=== PATIENT | female | born 1965 | race Caucasian/White ===

== ENCOUNTER 2018-01-11 10:47 | Emergency (ER) | payer BC ==
[~2018-01-11] VITALS: Ht 170.1 cm; Wt 147.4 kg
[2018-01-11] MEDS ORDERED: MEDROL DOSEPAK4 MG PO (14:58)
== END 2018-01-11 14:56 | disposition home or self-care (01) ==
LOC: ED 10:47
DX: M54.9 Dorsalgia, unspecified (principal); G89.29 Other chronic pain; Z88.8 Allergy status to other drugs, medicaments and biological substances

== ENCOUNTER 2018-03-09 23:54 | Emergency (ER) | payer BC ==
[~2018-03-09] VITALS: Ht 165.1 cm
[~2018-03-09 23:54] MED LIST: MEDROL DOSEPAK4 MG PO
[2018-03-10 00:29] LABS: BASO % 0.2 % (0.0-1.0); EOS # 0.3 10*3/uL (0.0-0.4); EOS % 2.7 % (1.0-4.0); HEMATOCRIT 30.3 % (37.0-47.0); HEMOGLOBIN 9.4 g/dl (12.0-16.0); LYMPH # 1.4 10*3/uL (1.3-4.4); LYMPH % 14.3 % (27.0-41.0); MEAN CELL VOLUME 103.4 fl (81.0-99.0); MEAN CORPUSCULAR HGB 32.1 pg (27.0-31.0); MEAN PLATELET VOLUME 8.9 fl (9.6-12.3); MONO # 0.9 10*3/uL (0.1-1.0); MONO % 8.7 % (3.0-9.0); NEUT # 7.2 10*3/uL (2.3-7.9); NEUT % 72.9 % (47.0-73.0); PLATELET COUNT AUTOMATED 352 10*3/uL (130-400); RED BLOOD COUNT 2.93 10*6/uL (4.10-5.10); RED CELL DISTRI WIDTH 14.8 % (0-14.5); WHITE BLOOD COUNT 9.9 10*3/uL (4.8-10.8)
[2018-03-10 00:41] LABS: ACT PARTIAL THROMBO TIME 33.9 SECONDS (20.8-31.5); INTERNATIONAL NORM RATIO 1.1 (2.0-3.5)
[2018-03-10 00:45] LABS: ALBUMIN 2.2 gm/dl (3.1-4.5); ALKALINE PHOSPHATASE 231 U/L (45-117); BUN 10 mg/dl (7-24); CHLORIDE 96 mmol/L (98-107); CREATININE 0.83 mg/dL (0.55-1.02); POTASSIUM 3.3 mmol/L (3.5-5.1); SGOT/AST 36 IU/L (3-35); SGPT/ALT 38 U/L (12-78); SODIUM 136 mmol/L (136-145); TOTAL PROTEIN 7.4 gm/dL (6.4-8.2)
[2018-03-10 00:53] LABS: TROPONIN I < 0.015 ng/ml (<0.045)
== END 2018-03-10 02:10 | disposition other institution (70) ==
LOC: ED 23:54
PROVIDERS: Physician Assistant
DX: J98.01 Acute bronchospasm (principal); J44.9 Chronic obstructive pulmonary disease, unspecified; Z88.1 Allergy status to other antibiotic agents; Z88.8 Allergy status to other drugs, medicaments and biological substances; Z99.81 Dependence on supplemental oxygen; Z87.01 Personal history of pneumonia (recurrent)

== ENCOUNTER 2018-03-12 10:06 | Inpatient (IN) | payer BC ==
[2018-03-12] VITALS (9 sets, daily range): BP systolic 113–154; BP diastolic 66–82
[~2018-03-12] VITALS: Ht 175.3 cm; Wt 152.0 kg
--- NOTE | ~2018-03-12 | CON ---
[place], [place] REPORT OF CONSULTATION NAME: BREEZY RIVERA UNIT #: [id number] ROOM: 427 DOCTOR: MAC CONTI MDTOMMY BIRTHDATE: [birth year] DOS: 03/13/2018 REASON FOR CONSULTATION: For assessment of possibility of procedure completion MRI with the sedation and other ongoing respiratory symptoms of coughing, chest congestion. HISTORY OF PRESENT ILLNESS: A 52-year-old white female completely unknown to me, admitted to the hospital under hospitalist services, 03/12/2018. The patient admitted to the hospital. The patient has been noted with symptoms of positive blood culture for the patient, which were taken recent 2 days. The patient has been hospitalized at [facility], 12/2017. She has been noted multiple comorbid conditions, which has been known in the past. She has been also reported with a previous history of pneumonia, which were recently treated also diagnosis of COPD as well as the hypoxic respiratory failure. The patient stated she has not been assessed for sleep apnea disorder, but it has been suspected. The patient was also noted with nodule which was described in the right lower lobe monitored by graphics edit technician in [place], [place]. The patient stated that she has developed increased coughing, chest congestion, not expectorating much sputum. The patient denies any symptoms of hemoptysis. The patient was treated at [facility] after previous discharge. She was also complaining of severe pain, which she described in the spine area, multiple parts of the body, stating that today she has been suggested by the MRI for this patient, but could not complete that because of inability to lie flat. She does have symptoms of shortness breath, which has been present for past several months with a gradual increase in occurring sometime at rest. Denies symptoms of wheezing. REVIEW OF SYSTEMS: CONSTITUTIONAL SYMPTOMS: Fatigue and tiredness reported for this patient, not sure about symptoms of fever or chills. EYES: Denies any burning, redness, or tenderness. EARS, NOSE, THROAT SYMPTOMS: Denies sore throat, hoarseness, otalgia, postnasal drainage or epistaxis. CARDIOVASCULAR: No angina pain, edema or pain of the lower extremities. Previous edema of the lower extremities has been reported. GASTROINTESTINAL: Severe morbid obesity. Denies symptoms of nausea, vomiting, diarrhea, abdominal pain, hematemesis, melena, or hematochezia. GENITOURINARY: Denies any symptoms of suprapubic pain, hematuria or trouble with urination. MUSCULOSKELETAL SYMPTOMS: Severe pain, which is described in spine, multiple parts of the joint for this patient with various different arthropathies reported by the patient. SKIN: Denies abnormal lesions or rashes. CENTRAL NERVOUS SYSTEM: General weakness, fatigue for this patient was noted and is not able to walk recently because of just the weakness at this time, but stated that she has been walking previously by herself without any help. PAST MEDICAL HISTORY: 1. Has been reported for multiple diagnoses stated by the patient and confirmed by the who has been present and assisted with the patient history as [place], [place] REPORT OF CONSULTATION NAME: BREEZY RIVERA UNIT #: [id number] ROOM: [facility] DOCTOR: TOMMY INFANTE MD BIRTHDATE: [birth year] bronchial asthma. 2. COPD. 3. Degenerative arthritis. 4. Intervertebral disk disease. 5. Hilda thyroiditis. 6. Severe morbid obesity. 7. Polycystic ovarian syndrome. 8. Scoliosis. 9. Spondylolisthesis. 10. Spinal stenosis. 11. Suspected obstructive sleep apnea disorder. 12. Chronic hypoxic respiratory failure, intermittent use of oxygen. PAST SURGICAL HISTORY: The patient was noted none previous major surgeries. SOCIAL HISTORY: She is and lives at home, does not have any children. Denies history of alcohol use or any illicit drugs. MEDICATIONS: The patient's medication which were listed at the time of admission, use of theophylline, potassium chloride, OxyContin, omeprazole, Nystatin, metformin, levothyroxine, DuoNeb, ibuprofen, vitamin D, gabapentin, Diamox, Soma, BuSpar, Bumex, Symbicort, atorvastatin and acetaminophen. DRUG ALLERGY HISTORY: Reported allergies to: 1. Breo-Ellipta. 2. Cefaclor. 3. Azithromycin. PHYSICAL EXAMINATION: GENERAL: This is a 52-year-old morbidly obese female patient who has been currently lying in the bed. Height of 5 feet 9 inches. Weight has been rather reported at 335 pounds. VITAL SIGNS: For the patient recorded as temperature 99.7 degrees Fahrenheit, normal temperature, respiratory rate 20-18, heart rate 111-104, blood pressure 113/71-140/81. Pulse oxygen saturation on 4 liters nasal cannula 94% saturation. HEENT: Examination shows decreased posterior pharyngeal space. Head was atraumatic. Eyes nonicterus. NECK: Supple. CARDIOVASCULAR: S1, S2 is audible. Limited examination. LUNGS: The patient's auscultation anterolaterally without any wheezing or crackles. ABDOMEN: Noted soft, severely obese and morbid. Bowel sounds present without any tenderness. EXTREMITIES: The patient with chronic obesity without edema, clubbing or cyanosis. CENTRAL NERVOUS SYSTEM: Limited examination and does not show any focal neurologic deficit. MUSCULOSKELETAL: There were no visible areas of joint swelling was noted for the patient or the major joints on visual inspection. There were no deformities [place], [place] REPORT OF CONSULTATION NAME: BREEZY RIVERA UNIT #: [id number] ROOM: [facility] DOCTOR: TOMMY INFANTE MD BIRTHDATE: [birth year] of musculoskeletal system. LABORATORY DATA: PT/PTT on 03/10/2018 was negative. CBC of the patient done in the Emergency Room noted as hemoglobin 9.4, hematocrit 30.3, WBC count normal, platelet count normal. CMP during ER assessment of the patient, normal BUN and creatinine and potassium 3.3. CBC that was done yesterday on admission, hemoglobin 9.5, hematocrit 30.7, WBC count normal, platelet count normal. Lactic acid 1.4. CMP of the patient that was done yesterday, normal BUN and creatinine. Potassium 3.1. Albumin of 2.3. PT/PTT were noted normal. The ESR was noted elevated at 134. Troponin for the patient, which was done yesterday and this morning, 3 sets normal. Blood cultures taken 03/12/2018 for the patient, gram-positive cocci in clusters was noted. Blood culture for the patient, which was taken on 03/10/2018 done previously during ER visit noted with the Staph aureus with the finding consistent with MRSA. The chest x-ray finding for the patient, which has been reported by me in this consultation need to be completely deleted. The chest x-ray was done, 1 view, the patient was noted with the limited assessment because of very large body habitus. The patient apparently appeared to be possibility of retrocardiac infiltration cannot be completely excluded because lack of lateral view could not confirm if there is any infiltration or atelectasis of the left lower lobe. IMPRESSION: 1. The patient who has been admitted to the hospital noted with overwhelming bacteremia with pain in the spine for this patient was also noted with increased respiratory symptoms, coughing without any sputum expectoration, shortness of breath. Pulse with overwhelming bacteremia with MRSA. The source of bacteremia of the patient was unknown, possible and questionable pneumonia for this patient or any seeding of the spine for the patient resulting in bacteremia cannot be completely excluded. 2. Past history of severe osteoarthritis of the patient and arthritis of spine and other issues. 3. Strong suspicion of obstructive sleep apnea disorder. Current body habitus. The patient required further assessment. 4. Chronic hypoxic respiratory failure for the patient. 5. Chronic hypercarbia for the patient's metabolic alkalosis, on Diamox use. 6. Comorbid condition of the hypothyroidism, severe morbid obesity, bronchial asthma for the patient and current cough. PLAN OF MANAGEMENT: It would be not possible for this patient to obtain the MRI for the patient with outpatient medical status and inability to lay down flat and current ongoing respiratory symptom of the patient posing a high risk of developing acute respiratory failure if the patient with MRI to be done on monitor of his sedation is very likely. The patient needs to be transferred to [facility] as she has been known to all of the physicians who has been treating the patient on several conditions for further assessment and the MRI could be attempted there, potential intubation to be done for the patient for the MRI, but this is to be decided by opinion from a primary graphics edit technician. In the meantime, continue bacteremia treatment with vancomycin and other [place], [place] REPORT OF CONSULTATION NAME: BREEZY RIVERA UNIT #: [id number] ROOM: 427 DOCTOR[facility] [birth year] recommendation, which has given by the infectious disease specialist, follow those recommendations. All other supportive therapy, plan of management and care. Prognosis of the patient remains guarded. The current ongoing medical problem of the patient and the other risk and other limitations has already been addressed with the patient's who understand that very well about the limitation of her problem as well as discussion was done with Dr. Erick Malone for the patient for transfer to [facility]. TOMMY WATTS MD CM:CONSTR:REPORT OF CONSULTATION 1605 03/14/18 0500 interface
--- NOTE | ~2018-03-12 | PR ---
[place], [place] PROGRESS NOTE NAME: BREEZY RIVERA UNIT #: [id number] ROOM: 427 DOCTOR: MAC CONTI MD,TOMMY BIRTHDATE: [birth year] DOS: 03/14/2018 SUBJECTIVE: She has been noted at this time comfortable, lying in the bed, still complains of pain in the back and other areas, general weakness, fatigue, coughing has been noted with some sputum expectoration this morning. Shortness of breath noted stable on oxygen supplementation. We will continue to provide the patient with the nasal cannula. OBJECTIVE: VITAL SIGNS: Normal temperature, respiratory rate 16, heart rate 79, blood pressure 133/60-120/80. The pulse oxygen saturation on 4 liters nasal cannula 97% saturation. HEENT: No new change. NECK: Supple. CARDIOVASCULAR: S1, S2 is audible. LUNGS: Noted moderate decreased breath sounds with scattered crackles in the right and the left lateral auscultation. ABDOMEN: Soft with morbid obesity. EXTREMITIES: Noted no changes from previous chronic obesity. LABORATORY DATA: The cultures of the blood, which were done yesterday was 1/2 culture still noted Gram-positive cocci in clusters. IMPRESSION: Overwhelming bacteremia was noted with possible endocarditis would be considered. Source of infection, not clearly known may be related to pneumonia as well is one of the consideration with the current chest x-ray. Limited assessment because of the current large body habitus and other reasons. PLAN OF THERAPY: No changes in the plan for the patient at this time will be necessary. The patient is awaiting for transfer to [facility] for further assessment and care of her complex issues. TOMMY WATTS MD CM:PNTRANS 1342 [id number] TOMMY CONTI MD 03/15/18 0144 interface
--- NOTE | ~2018-03-12 | CON ---
[place], [place] REPORT OF CONSULTATION NAME: BREEZY RIVERA UNIT #: [id number] ROOM: 427 DOCTOR: JEFFERSON QUIÑONEZ MD BIRTHDATE: [birth year] DOS: 03/12/2018 REASON FOR CONSULTATION: MRSA bacteremia. HISTORY OF PRESENT ILLNESS: This is a 52-year-old female who was brought from [facility] to [facility] in response to positive blood cultures obtained on 03/10/2018 that shows MRSA with vancomycin DARLIN 2. Currently, the patient has been started on vancomycin, meropenem and levofloxacin to cover the lungs for suspected pneumonia. According to the patient, her things got worse weekly from first week of December, which she was presenting for shortness of breath and was considered to be an asthma exacerbation. She was treated with steroids and discharged home and started having back pain, which was uncontrollable for her. She went to [facility] from where she was given Dilaudid for pain relief and at that time, CT scan of the spine without contrast shows chronic spinal issues including lumbarization of the sacrum, degenerative joint disease, bulging disks, spondylolisthesis. She was apparently not following up with the physical therapy at the [facility] and she was discharged. Apparently, claims that they left AMA because they were not happy and she again stayed for 2 weeks at home, but her symptoms continued to get worse, so she got readmitted at [facility] and then got transferred to [facility] and while staying at the [facility], she did notice slight improvement in her back pain. On asking her retrospectively, she denies any flu-like symptoms, was having shortness of breath, slightly increased from her baseline cough which is occasionally productive. No chills. She says "I feel overall sick," feels nauseous. No episodes of vomiting or diarrhea. No abdominal pain. On arrival to the ER, her vitals were noted to be stable. She is slightly tachycardic. Her labs revealed no leukocytosis. ESR is very high at 134. No lactic acidosis. Her chest x-ray has been done today, which shows cardiomegaly, mild vascular congestion, lower right hilar infiltrate, left base atelectasis and effusion. PAST MEDICAL HISTORY: Significant for asthma, chronic back pain, COPD, degenerative joint disease of the spine, GERD, Hilda's thyroiditis, hyperlipidemia, morbid obesity, polycystic ovarian syndrome. PAST SURGICAL HISTORY: None. SOCIAL HISTORY: Occasional alcoholic. No illicit drug use. No tobacco abuse. FAMILY HISTORY: Father has history of diabetes. Mother has history of hypertension. ALLERGIES: AZITHROMYCIN, unspecified; CEFACLOR, FLUTICASONE. HOME MEDICATIONS: Include Tylenol, atorvastatin, Symbicort, Bumex, bumetanide, bupropion, Soma, Diamox, diclofenac, gabapentin, Mucinex, ipratropium, levothyroxine, metformin, theophylline and ____. REVIEW OF SYSTEMS: A 12-point review of systems has been pertinent negatives are positive, has been included in HPI, rest are noncontributory. [place], [place] REPORT OF CONSULTATION NAME: BREEZY RIVERA UNIT #: [id number] ROOM: [facility] DO[facility]: [birth year] PHYSICAL EXAMINATION: VITAL SIGNS: Noted and mentioned in HPI. GENERAL: The patient is alert, oriented x 3 in mild distress because of her back pain. HEENT: Atraumatic, normocephalic. PERRLA, EOMI. RESPIRATORY: Air entry bilaterally equal. Coarse crackles present in bilateral lungs, all lung dickerson. No wheezing, currently hooked up to 2 liters of nasal cannula, is being increased to 4 liters now. CARDIOVASCULAR: S1, S2 normal. No murmur, rubs or gallop. ABDOMEN: Soft, nontender, nondistended, morbidly obese. EXTREMITIES: Minimal movement of the lower legs, restricted by pain. Sensation is intact. LABORATORY DATA AND IMAGING: Reviewed, mentioned in HPI. IMPRESSION: 1. Methicillin-resistant Staphylococcus aureus bacteremia, likely source from recent IV lines placed and multiple hospitalizations, some of them ____ and was causing her intense pain. Another likely source is pneumonia. 2. Back pain secondary to lumbar stenosis, suspicion for epidural abscess with methicillin-resistant Staphylococcus aureus bacteremia or seeding in the spine. The patient is having some neurological deficit. No loss of bladder or bowel control at this time. 3. History of lung mass. 4. Concern for methicillin-resistant Staphylococcus aureus pneumonia. PLAN: 1. At this time, continue with vancomycin, questionable PENICILLIN allergy, can continue meropenem for now. Discontinue levofloxacin. 2. Get respiratory cultures. 3. Get procalcitonin. 4. Get CT chest with contrast and consult Pulmonary for management of lung mass as well as chronic obstructive pulmonary disease. 5. The patient has instability of her back and weakness in the legs, need CT spine with contrast. I prefer to have an MRI with gadolinium, but this would need sedation for the patient to lie flat and her oxygen saturation might drop during this time. I did discuss with the hospitalist fiction and nonfiction author to discuss with Pulmonary. If it is something not possible and causing excessive respiratory distress that needs urgent CT scan of spine with contrast and may eventually need neurosurgical evaluation. 6. All other blood cultures from today. 7. Echocardiogram has been ordered. Thank you for your consult. Please call for any questions. [place], [place] REPORT OF CONSULTATION NAME: BREEZY RIVERA UNIT #: [id number] ROOM: 427 DOCTOR: KHANG JONES,[facility] BIRTHDATE: [birth year] Marija Quiñonez MD CM:CONSTR:REPORT OF CONSULTATION [id number] 03/13/18 0046 interface
--- NOTE | ~2018-03-12 | EKG ---
[place], [place] ELECTROCARDIOGRAM REPORT NAME: BREEZY RIVERA UNIT #: [id number] ROOM: 427 DOCTOR: MAC CONTI MD,TOMMY BIRTHDATE: [birth year] DOS: 03/12/2018 TIME: 10:34 a.m. Echocardiogram showed normal sinus rhythm. Baseline heart rate 94 beats per minute. Low voltage electrocardiogram most likely due to patient's body habitus. Nonspecific ST-T changes noted. TOMMY WATTS MD CM:EKGRPT:ELECTROCARDIOGRAM REPORT 1218 1224 TOMMY CONTI MD
[2018-03-12 10:44] LABS: BASO % 0.2 % (0.0-1.0); EOS # 0.2 10*3/uL (0.0-0.4); EOS % 1.5 % (1.0-4.0); HEMATOCRIT 30.7 % (37.0-47.0); HEMOGLOBIN 9.5 g/dl (12.0-16.0); LYMPH # 1.8 10*3/uL (1.3-4.4); LYMPH % 17.1 % (27.0-41.0); MEAN CELL VOLUME 102.3 fl (81.0-99.0); MEAN CORPUSCULAR HGB 31.7 pg (27.0-31.0); MEAN CORPUSCULAR HGB CONC 30.9 g/dl (33.0-37.0); MEAN PLATELET VOLUME 8.9 fl (9.6-12.3); MONO # 0.9 10*3/uL (0.1-1.0); MONO % 8.8 % (3.0-9.0); NEUT # 7.6 10*3/uL (2.3-7.9); NEUT % 71.1 % (47.0-73.0); NUCLEATED RED BLOOD CELL 0.2 % (0.0-0.0); PLATELET COUNT AUTOMATED 355 10*3/uL (130-400); RED CELL DISTRI WIDTH 14.8 % (0-14.5); WHITE BLOOD COUNT 10.7 10*3/uL (4.8-10.8)
[2018-03-12 10:52] LABS: ACT PARTIAL THROMBO TIME 31.8 SECONDS (20.8-31.5); INTERNATIONAL NORM RATIO 1.1 (2.0-3.5)
[2018-03-12 11:00] LABS: ALBUMIN 2.3 gm/dl (3.1-4.5); ALKALINE PHOSPHATASE 191 U/L (45-117); BUN 6 mg/dl (7-24); CHLORIDE 95 mmol/L (98-107); CREATININE 0.72 mg/dL (0.55-1.02); LIPASE 223 U/L (73-393); POTASSIUM 3.1 mmol/L (3.5-5.1); SGOT/AST 26 IU/L (3-35); SGPT/ALT 30 U/L (12-78); SODIUM 136 mmol/L (136-145); TOTAL PROTEIN 7.3 gm/dL (6.4-8.2)
[2018-03-12 11:03] LABS: TROPONIN I < 0.015 ng/ml (<0.045)
[2018-03-12] MEDS ORDERED: POTASSIUM CHLO10 ME4 PO (13:16)
[2018-03-12] MEDS ORDERED: Ipratropium Brom3 ML INH (13:17)
[2018-03-12] MEDS ORDERED: MUCINEX D ER T1 EACH PO (13:20)
[2018-03-12] MEDS ORDERED: BUMETANIDE1 MG PO (13:21)
[2018-03-12] MEDS ORDERED: NYST SUSP PO (13:23)
[2018-03-12] MEDS ORDERED: METFORMIN HCL500 MG PO (13:25)
[2018-03-12] MEDS ORDERED: NEURONTIN300 MG PO (13:26)
[2018-03-12] MEDS ORDERED: ERGOCAL2500 UNIT PO (13:27)
[2018-03-12] MEDS ORDERED: OMEPRAZOLE20 M2 PO (13:28)
[2018-03-12] MEDS ORDERED: LEVOXYL112 MCG PO (13:28)
[2018-03-12] MEDS ORDERED: LIPITOR10 MG PO (13:28)
[2018-03-12] MEDS ORDERED: GOOD NEIGHBOR500 M2 PO (13:31)
[2018-03-12] MEDS ORDERED: SYMB160 INH (13:31)
[2018-03-12] MEDS ORDERED: DIAMOX SEQUELS PO (13:33)
[2018-03-12] MEDS ORDERED: THEOPHYLLINE E100 M1 PO (13:34)
[2018-03-12] MEDS ORDERED: BUPROPION ER100 MG PO (13:37)
[2018-03-12] MEDS ORDERED: VOLTAREN100 GM TD (13:38)
[2018-03-12] MEDS ORDERED: Motrin,Rufen800 MG PO (13:39)
[2018-03-12] MEDS ORDERED: OXYCONTIN10 M1 PO (13:39)
[2018-03-12] MEDS ORDERED: SOMA350 MG PO (13:40)
[2018-03-12] MEDS ORDERED: OXYCODONE HCL5 M1 PO (13:41)
[2018-03-12 18:56] LABS: BILIRUBIN NEGATIVE (NEGATIVE); BLOOD NEGATIVE (NEGATIVE); CLARITY CLEAR (CLEAR); COLOR YELLOW (YELLOW); GLUCOSE NEGATIVE (NEGATIVE); KETONE NEGATIVE (NEGATIVE); LEUKO ESTERASE NEGATIVE (NEGATIVE); NITRITE NEGATIVE (NEGATIVE); SPECIFIC GRAVITY <= 1.005 (1.005-1.030); UROBILINOGEN 0.2 E.U./dl (0.2-1.0)
[2018-03-12 19:08] LABS: BACTERIA 1+; EPITHELIAL CELLS 50-55; RBC 0-2 rbc/hpf (0-2)
[2018-03-13 01:13] VITALS: BP 132/71
[2018-03-13 07:45] LABS: BASO % 0.2 % (0.0-1.0); EOS # 0.1 10*3/uL (0.0-0.4); HEMATOCRIT 28.7 % (37.0-47.0); HEMOGLOBIN 8.9 g/dl (12.0-16.0); LYMPH # 1.6 10*3/uL (1.3-4.4); LYMPH % 17.7 % (27.0-41.0); MEAN CELL VOLUME 102.9 fl (81.0-99.0); MEAN CORPUSCULAR HGB 31.9 pg (27.0-31.0); MEAN PLATELET VOLUME 9.4 fl (9.6-12.3); MONO # 0.9 10*3/uL (0.1-1.0); MONO % 9.9 % (3.0-9.0); NEUT # 6.2 10*3/uL (2.3-7.9); NEUT % 69.1 % (47.0-73.0); PLATELET COUNT AUTOMATED 341 10*3/uL (130-400); RED BLOOD COUNT 2.79 10*6/uL (4.10-5.10); RED CELL DISTRI WIDTH 14.7 % (0-14.5)
[2018-03-13 07:47] LABS: BUN 4 mg/dl (7-24); CHLORIDE 99 mmol/L (98-107); CHOLESTEROL 153 mg/dL (<200); HDL CHOLESTEROL 48 mg/dl (40-60); PHOSPHOROUS 4.2 mg/dL (2.5-4.9); POTASSIUM 3.5 mmol/L (3.5-5.1); SODIUM 139 mmol/L (136-145)
[2018-03-13 08:00] VITALS: BP 143/68
[2018-03-13 08:22] LABS: CREATININE 0.57 mg/dL (0.55-1.02)
[2018-03-13 08:30] LABS: VITAMIN D, 25-HYDROXY 73.7 ng/mL (30-100)
[2018-03-13 08:37] LABS: LDL CHOLESTEROL 84 mg/dL (9-159); TRIGLYCERIDES 104 mg/dl (<150); VLDL CHOLESTEROL 21 mg/dL (6-40)
[2018-03-13 12:00] VITALS: BP 145/76
[2018-03-13 16:00] VITALS: BP 126/54
[2018-03-13 20:00] VITALS: BP 136/80
[2018-03-14] VITALS: BP 135/75
[2018-03-14 08:00] VITALS: BP 120/80
[2018-03-14 12:00] VITALS: BP 133/62
[2018-03-14] MEDS ORDERED: LEVOFLOXAC750 MG/150 IV (14:05)
[2018-03-14] MEDS ORDERED: VANCOMYCIN2 GM/500 M IV (14:05)
[2018-03-14] MEDS ORDERED: VITAMIN D-32000 UNIT PO (14:05)
[2018-03-14] MEDS ORDERED: MERREM IV1 GM IV (14:05)
== END 2018-03-14 15:46 | disposition short-term general hospital (02) | DRG 871 ==
LOC: ED 10:06 → 4E 11:56 → EDHOLD 11:56 → ICCU 12:15 → 4E 19:33
PROVIDERS: Emergency Medicine; Student in an Organized Health Care Education/Training Program
DX: A41.9 Sepsis, unspecified organism (principal); E43 Unspecified severe protein-calorie malnutrition; E87.3 Alkalosis; J96.11 Chronic respiratory failure with hypoxia; J18.9 Pneumonia, unspecified organism; E66.01 Morbid (severe) obesity due to excess calories; J45.901 Unspecified asthma with (acute) exacerbation; Z68.41 Body mass index [BMI] 40.0-44.9, adult; J96.12 Chronic respiratory failure with hypercapnia; E87.6 Hypokalemia; D53.9 Nutritional anemia, unspecified; M54.9 Dorsalgia, unspecified; R79.82 Elevated C-reactive protein (CRP); E06.3 Autoimmune thyroiditis; M48.061 Spinal stenosis, lumbar region without neurogenic claudication; E28.2 Polycystic ovarian syndrome; E03.9 Hypothyroidism, unspecified; K21.9 Gastro-esophageal reflux disease without esophagitis; R70.0 Elevated erythrocyte sedimentation rate; E78.5 Hyperlipidemia, unspecified; Z79.899 Other long term (current) drug therapy; Z88.1 Allergy status to other antibiotic agents; Z88.8 Allergy status to other drugs, medicaments and biological substances; Z82.49 Family history of ischemic heart disease and other diseases of the circulatory system; Z83.3 Family history of diabetes mellitus

== ENCOUNTER → 2021-01-23 | Outpatient (CLI) | payer BC, MEDICARE ==
[~2021-01-23] MED LIST changes: +BUMETANIDE1 MG PO; +BUPROPION ER100 MG PO; +DIAMOX SEQUELS PO; +ERGOCAL2500 UNIT PO; +GOOD NEIGHBOR500 M2 PO; +Ipratropium Brom3 ML INH; +LEVOFLOXAC750 MG/150 IV; +LEVOXYL112 MCG PO; +LIPITOR10 MG PO; +MERREM IV1 GM IV; +METFORMIN HCL500 MG PO; +MUCINEX D ER T1 EACH PO; +Motrin,Rufen800 MG PO; +NEURONTIN300 MG PO; +NYST SUSP PO; +OMEPRAZOLE20 M2 PO; +OXYCODONE HCL5 M1 PO; +OXYCONTIN10 M1 PO; +POTASSIUM CHLO10 ME4 PO; +SOMA350 MG PO; +SYMB160 INH; +THEOPHYLLINE E100 M1 PO; +VANCOMYCIN2 GM/500 M IV; +VITAMIN D-32000 UNIT PO; +VOLTAREN100 GM TD
== END | disposition home or self-care (01) ==
LOC: RAD 14:14
PROVIDERS: ATTEND Internal Medicine Critical Care Medicine
DX: R05 Cough (principal)

== ENCOUNTER → 2021-02-08 | Outpatient (CLI) | payer BC, MEDICARE ==
[2021-02-08 12:34] LABS: CREATININE 1.36 mg/dL (0.55-1.02)
== END | disposition home or self-care (01) ==
LOC: LAB 12:06 → CT 13:00
PROVIDERS: ATTEND Internal Medicine Critical Care Medicine
DX: Z01.812 Encounter for preprocedural laboratory examination (principal); R91.8 Other nonspecific abnormal finding of lung field; R91.1 Solitary pulmonary nodule; K76.0 Fatty (change of) liver, not elsewhere classified; M51.34 Other intervertebral disc degeneration, thoracic region; M41.84 Other forms of scoliosis, thoracic region; E66.01 Morbid (severe) obesity due to excess calories; J44.9 Chronic obstructive pulmonary disease, unspecified

== ENCOUNTER → 2021-09-13 | Outpatient (CLI) | payer BC ==
[2021-09-13 16:13] LABS: BASO % 0.2 % (0.0-1.0); EOS # 0.1 10*3/uL (0.0-0.4); EOS % 1.2 % (1.0-4.0); HEMATOCRIT 40.4 % (37.0-47.0); LYMPH # 1.8 10*3/uL (1.3-4.4); MEAN CELL VOLUME 100.7 fl (81.0-99.0); MEAN CORPUSCULAR HGB 32.7 pg (27.0-31.0); MEAN CORPUSCULAR HGB CONC 32.4 g/dl (33.0-37.0); MEAN PLATELET VOLUME 11.1 fl (9.6-12.3); MONO # 0.7 10*3/uL (0.1-1.0); MONO % 7.4 % (3.0-9.0); NEUT # 7.2 10*3/uL (2.3-7.9); NEUT % 72.9 % (47.0-73.0); PLATELET COUNT AUTOMATED 212 10*3/uL (130-400); RED BLOOD COUNT 4.01 10*6/uL (4.10-5.10); RED CELL DISTRI WIDTH 13.2 % (0-14.5); WHITE BLOOD COUNT 9.9 10*3/uL (4.8-10.8)
[2021-09-13 16:36] LABS: ALBUMIN 3.6 gm/dl (3.1-4.5); CREATININE 1.4 mg/dL (0.55-1.02); POTASSIUM 4.2 mmol/L (3.5-5.1); TOTAL PROTEIN 7.7 gm/dL (6.4-8.2)
[2021-09-13 16:42] LABS: FERRITIN 165.4 ng/mL (10.0-291.0)
== END | disposition home or self-care (01) ==
LOC: LAB 15:27
PROVIDERS: ATTEND Surgery
DX: E66.01 Morbid (severe) obesity due to excess calories (principal)

== ENCOUNTER 2023-10-28 14:12 | Emergency (ER) | payer BC, MEDICARE ==
[~2023-10-28] VITALS: Ht 175.2 cm; Wt 136.1 kg
[2023-10-28 15:56] LABS: BASO % 0.2 % (0.0-1.0); EOS % 0.2 % (1.0-4.0); HEMATOCRIT 42.5 % (37.0-47.0); LYMPH % 11.7 % (27.0-41.0); MEAN CELL VOLUME 93.2 fl (81.0-99.0); MEAN CORPUSCULAR HGB 32.2 pg (27.0-31.0); MEAN CORPUSCULAR HGB CONC 34.6 g/dl (33.0-37.0); MEAN PLATELET VOLUME 10.8 fl (9.6-12.3); MONO # 0.6 10*3/uL (0.1-1.0); MONO % 7.1 % (3.0-9.0); NEUT % 80.5 % (47.0-73.0); PLATELET COUNT AUTOMATED 216 10*3/uL (130-400); RED BLOOD COUNT 4.56 10*6/uL (4.10-5.10); RED CELL DISTRI WIDTH 13.1 % (0-14.5); WHITE BLOOD COUNT 8.7 10*3/uL (4.8-10.8)
[2023-10-28 16:23] LABS: POTASSIUM 4.4 mmol/L (3.4-5.1); TOTAL PROTEIN 7.8 gm/dL (6.0-8.0)
[2023-10-28 17:25] LABS: ACT PARTIAL THROMBO TIME 31.2 SECONDS (20.0-32.1)
[2023-10-28] MEDS ORDERED: REGLAN5 MG PO (20:11)
== END 2023-10-28 20:57 | disposition home or self-care (01) ==
LOC: ED 14:12
PROVIDERS: Physician Assistant Medical
DX: K46.9 Unspecified abdominal hernia without obstruction or gangrene (principal); R11.0 Nausea; J44.9 Chronic obstructive pulmonary disease, unspecified; K21.9 Gastro-esophageal reflux disease without esophagitis; E78.5 Hyperlipidemia, unspecified; Z88.8 Allergy status to other drugs, medicaments and biological substances; Z88.1 Allergy status to other antibiotic agents